=== PATIENT | male | born 1980 | race Caucasian/White ===

== ENCOUNTER 2019-12-19 14:18 | Emergency (ER) | payer OTHER, SELFPAY ==
[2019-12-19 14:29] VITALS: BP 159/92; PULSE 100; RESP 20; TEMP 37.3; O2SAT 100
--- NOTE | 2019-12-19 14:36 | ED.SKABFB ---
HPI - Skin/Abscess/Foreign Bdy General Chief complaint: Skin/Abscess/Foreign Body Stated complaint: poison ana Time Seen by Provider: 12/19/19 14:36 Source: patient and RN notes reviewed History of Present Illness HPI narrative: Patient is a 39-year-old male who presents the urgent care with complaints of poison ana. Patient states that he was removing brush off his property yesterday and has been using hydrocortisone cream to the area but noticed some mild spreading of the rash. Patient has noticed areas to bilateral upper arms but otherwise denies any spreading to other areas. No other acute complaints. No acute distress noted. Patient read the plan of care. Related Data Home Medications Medication Instructions Recorded Confirmed amlodipine 10 mg PO DAILY 12/19/19 12/19/19 levothyroxine [Synthroid] 200 mcg PO DAILY 12/19/19 12/19/19 Allergies Allergy/AdvReac Type Severity Reaction Status Date / Time No Known Allergies Allergy Verified 12/19/19 14:33 Review of Systems Review of Systems: Narrative: CONSTITUTIONAL: Denies fever, chills, or sweats. EYES: Denies visual changes, redness, or discharge. ENT: Denies rhinorrhea, congestion, sore throat, or otalgia. CARDIOVASCULAR: Denies chest pain, palpitations, or edema. RESPIRATORY: Denies cough or dyspnea. GASTROINTESTINAL: Denies abdominal pain, nausea, vomiting, or diarrhea. GENITOURINARY: Denies dysuria or hematuria. SKIN: Reports of itchy poison ana to bilateral upper arms MUSCULOSKELETAL: Denies back pain, joint pain, or myalgia. NEUROLOGIC: Denies headache, numbness, or weakness. All other systems reviewed are negative, except as documented in HPI. PMFSH Social History Social History Alcohol intake: current Comments At the time of my signature, I reviewed and agree with the nursing past medical, surgical, social, and family history. There is no relevant family history pertinent to the patient complaint. Exam Narrative: Exam Narrative: GENERAL: This is a well-nourished, well-developed patient, in no apparent distress. HEAD: normocephalic, atraumatic. EYES: PERRL. Sclera clear/white. Vision is grossly intact. EARS: External ears normal NOSE: External nose normal with no obvious nasal discharge, nares without redness, no rhinorrhea. THROAT: Mucous membranes moist NECK: Neck supple SKIN: Mild erythemic linear pustules noted to the bilateral upper arms NEURO: awake, alert, and oriented to person, place and time. There were no obvious focal neurologic abnormalities. EXTREMITIES: No clubbing, cyanosis, or edema. Course Vital Signs Vital signs: Vital Signs Temperature 99.2 F 12/19/19 14:29 Pulse Rate 100 12/19/19 14:29 Respiratory Rate 20 12/19/19 14:29 Blood Pressure 159/92 H 12/19/19 14:29 Pulse Oximetry 100 12/19/19 14:29 Temperature 99.2 F 12/19/19 14:29 Pulse Rate 100 12/19/19 14:29 Respiratory Rate 20 12/19/19 14:29 Blood Pressure 159/92 H 12/19/19 14:29 Pulse Oximetry 100 12/19/19 14:29 Reviewed?patient is informed that they may have pre-hypertension or hypertension based on a blood pressure reading in the department. I recommend the patient call the primary care provider listed on their discharge instructions or a physician of their choice this week to arrange follow-up for further evaluation of possible pre-hypertension or hypertension. MDM - Skin/Abscess/Foreign Bdy MDM Narrative Medical decision making narrative: Advised the patient to use prescription cream to the areas as directed. If you develop any increase or spreading of the rash start steroid regimen and complete as directed. Minimal exposure and noticeable rash is typically unnecessary for steroid regimen however, the prescription will be available to you at the pharmacy if needed. Use tecnu scrub [id number] daily. Follow-up with your PCP within 2 to 5 days or for worsening symptoms or failure to improve. Differential Diagnosis Differential maddie
== END 2019-12-19 14:45 | disposition home or self-care (01) ==
PROVIDERS: Emergency Provider Nurse Practitioner Family
DX: L23.7 Allergic contact dermatitis due to plants, except food (principal); I10 Essential (primary) hypertension; E89.0 Postprocedural hypothyroidism
CPT/HCPCS: 99203; G0463

== ENCOUNTER 2022-04-28 12:00 | Emergency (ER) | payer OTHER, SELFPAY ==
[2022-04-28 12:10] VITALS: BP 152/88; PULSE 90; RESP 18; TEMP 36.4; O2SAT 100
--- NOTE | 2022-04-28 13:07 | ED.SKABFB ---
HPI - Skin/Abscess/Foreign Bdy General Chief complaint: Skin/Abscess/Foreign Body Stated complaint: Skin Sore Time Seen by Provider: 04/28/22 13:08 Source: patient Mode of arrival: ambulatory Limitations: no limitations History of Present Illness HPI narrative: 42-year-old male presenting for complaint of possible insect bite on the right upper back for about 2 days. He states it itches. He denies pain or drainage. He outlined today. Related Data Home Medications Medication Instructions Recorded Confirmed amlodipine 10 mg tablet 10 mg PO DAILY 12/19/19 04/28/22 levothyroxine 200 mcg tablet 200 mcg PO DAILY 12/19/19 04/28/22 (Synthroid) sildenafil 100 mg tablet 100 mg PO DIRECTED 04/28/22 04/28/22 Allergies Allergy/AdvReac Type Severity Reaction Status Date / Time No Known Allergies Allergy Verified 12/19/19 14:33 Review of Systems Review of Systems: CONSTITUTIONAL: Denies body aches, fever, chills, or sweats. EYES: Denies visual changes, redness, or discharge. ENT: Denies rhinorrhea, congestion CARDIOVASCULAR: Denies chest pain, palpitations, or edema. RESPIRATORY: Denies cough or dyspnea. GASTROINTESTINAL: Denies abdominal pain, nausea, vomiting, or diarrhea. SKIN: per HPI MUSCULOSKELETAL: Denies back pain, joint pain, or myalgia. NEUROLOGIC: Denies headache, numbness, tingling, or weakness. [facility] Social History Social History Alcohol intake: current Comments At time of signature, I have reviewed and agree with nursing past medical, surgical, social and family history unless otherwise noted. Please see nursing chart for further information. There is no relevant family history pertinent to the presenting complaint Exam Narrative: GENERAL: Well-appearing HEAD: Normocephalic, atraumatic. EYES: conjunctivae clear, and EOMI. ENT: Mucous membranes moist. Oropharynx without edema, erythema or lesions. NECK: Supple. No lymphadenopathy CHEST: Clear to auscultation. HEART: Regular rate and rhythm. SKIN: Warm, dry. Right upper back just below scapula with approx 3.5x2cm irregular raised red area with pinpoint red center, nontender; No fluctuance or induration NEURO: Alert and oriented x3. Course Course Emergency Course: Patient is aware of diagnosis, understands and agrees to treatment plan. Anticipatory guidance given. Patient agrees to follow-up as directed and is aware of reasons to seek care at the emergency department. Portions of this record may have been created with voice recognition software Level of Care: Express Care Visit Vital Signs Vital signs: Vital Signs Temperature 97.5 F L 04/28/22 12:10 Pulse Rate 90 04/28/22 12:10 Respiratory Rate 18 04/28/22 12:10 Blood Pressure 152/88 H 04/28/22 12:10 Pulse Oximetry 100 04/28/22 12:10 Oxygen Delivery Room Air 04/28/22 12:10 Temperature 97.5 F L 04/28/22 12:10 Pulse Rate 90 04/28/22 12:10 Respiratory Rate 18 04/28/22 12:10 Blood Pressure 152/88 H 04/28/22 12:10 Pulse Oximetry 100 04/28/22 12:10 Oxygen Delivery Room Air 04/28/22 12:10 Reviewed MDM - Skin/Abscess/Foreign Bdy MDM Narrative Medical decision making narrative: Instructed patient to go to nearest ER immediately for any worsening symptoms including but not limited to: fever, spreading rash, pain, chest pain, trouble breathing, or any symptoms concerning to the patient. Differential Diagnosis Differential diagnosis: Likely abscess of skin or subcutaneous tissue, urticaria, herpes zoster, cellulitis and contact dermatitis Discharge Plan Discharge Clinical Impression: Insect bites Patient Disposition: Home, Self-Care Condition: Stable Instructions: Abscess (ED) Additional Instructions: Keep the area clean and dry - cleanse with warm water and mild soap and allow to fully dry. Ok to apply neosporin to the site Keep it open to air (no bandages)
== END 2022-04-28 13:18 | disposition home or self-care (01) ==
PROVIDERS: Emergency Provider Nurse Practitioner Family
DX: S20.461A Insect bite (nonvenomous) of right back wall of thorax, initial encounter (principal); W57.XXXA Bitten or stung by nonvenomous insect and other nonvenomous arthropods, initial encounter; I10 Essential (primary) hypertension; E89.0 Postprocedural hypothyroidism
CPT/HCPCS: 99213; G0463